=== PATIENT | female | born 1995 | race African-American/Black ===

== ENCOUNTER 2019-04-15 10:05 | Inpatient (IN) ==
[2019-04-15] MEDS ORDERED: CITRIC ACID/SODIUM CITRATE 30 ML UDCUP PO ONE (10:55)
[2019-04-15] MEDS ORDERED: FAMOTIDINE 20 MG/2 ML VIAL IV ONE (10:55)
[2019-04-15] MEDS ORDERED: ceFAZolin 2,000 MG in PREMIX 1 EACH IV ONE (10:55)
[2019-04-15] MEDS ORDERED: OXYTOCIN/LR 30 UNIT/1,000 ML BAG IV ONE (10:59)
[2019-04-15] MEDS ORDERED: OXYTOCIN 10 UNIT/ML VIAL IM ONE (10:59)
[2019-04-15] MEDS ORDERED: LACTATED RINGERS 1,000 ML IV SCH ×2 (11:00→15:30)
[2019-04-15 11:09] LABS: Basophils # 0.1 10*3/uL (0.0-0.2); Basophils % 0.5 % (0.0-0.8); Eosinophils # 0.1 10*3/uL (0.0-0.87); Hematocrit 35.5 VOL% (35.7-47.0); Hemoglobin 12.5 GM/DL (12.0-16.0); Immature Granulocytes % 1.3 %; Immature Granulocytes Absolute 0.12 #; Lymphocytes # 2.2 10*3/uL (1.4-4.0); Lymphocytes % 23.5 % (21.3-54.2); Mean Corpuscular HGB Conc 35.2 GM/DL (32-36); Mean Corpuscular Volume 75.1 FL (87-102); Monocytes % 7.4 % (1.7-12.7); Neutrophils % 66.3 % (38.7-73.9); Platelet Count 204 T/CUMM (130-400); Red Blood Count 4.73 MC/CUMM (3.8-5.5); Red Cell Distribution Width 14.3 % (9.3-17.3); White Blood Count 9.4 T/CUMM (4-12)
[2019-04-15 11:43] LABS: Albumin 2.9 G/DL (3.4-5.0); Bilirubin,Total 0.4 MG/DL (0.2-1.0); Calcium 8.7 MG/DL (8.5-10.1); Osmolality,Calculated 272.5 MOS/KG (273-304); Total Protein 6.8 G/DL (6.4-8.3)
[2019-04-15] MEDS ORDERED: MORPHINE 10 MG/10 ML VIAL ONE (12:36)
[2019-04-15] MEDS ORDERED: PHENYLEPHRINE 1 MG/10 ML SYRINGE IV ONE (12:36)
[2019-04-15] MEDS ORDERED: ONDANSETRON 4 MG/2 ML VIAL ONE ×2 (12:36→16:30)
[2019-04-15] MEDS ORDERED: BUPIVACAINE SPINAL 0.75% 2 ML AMP SPINAL ONE (12:36)
[2019-04-15] MEDS ORDERED: fentaNYL 100 MCG/2 ML VIAL ONE (12:36)
[2019-04-15] MEDS ORDERED: LACTATED RINGERS 1,000 ML IV ONE (14:00)
[2019-04-15] MEDS ORDERED: RHO(D) IMMUNE GLOBULIN 300 MCG SYRINGE IM ONE (15:17)
[2019-04-15] MEDS ORDERED: ONDANSETRON 4 MG/2 ML VIAL IV PRN (15:17)
[2019-04-15] MEDS ORDERED: OXYTOCIN/LR 20 UNIT/1,000 ML BAG IV ONE (15:17)
[2019-04-15] MEDS ORDERED: ACETAMINOPHEN 325 MG TABLET PO PRN (15:17)
[2019-04-15] MEDS ORDERED: MAGNESIUM HYDROXIDE SUSP 30 ML UDCUP PO PRN (15:17)
[2019-04-15 15:38] LABS: Apearance,Urine CLEAR (Clear); Bilirubin,Urine Negative (Negative); Blood, Urine Negative (Negative); Glucose,Urine (UA) Negative (Negative); Ketones,Urine 20 mg/dL (Negative); Nitrite,Urine Negative (Negative); Protein,Urine Negative; RBC,Urine 1 /HPF (0-4); Urine Color Straw (Yellow); Urine Specific Gravity 1.005 (1.001-1.035); Urine Urobilinogen < 2.0 EU/DL (0.2-1.0); WBC,Urine <1 /HPF (0-6)
[2019-04-15] MEDS ORDERED: EPINEPHrine 1 MG/ML VIAL ONE (15:43)
[2019-04-15] MEDS ORDERED: DEXAMETHASONE 4 MG/1 ML VIAL ONE (15:43)
[2019-04-15] MEDS ORDERED: BUPIVACAINE 0.5% 50 ML VIAL ONE (15:43)
[2019-04-15] MEDS ORDERED: PROMETHAZINE 25 MG/1 ML VIAL IM PRN (19:33)
[2019-04-15] MEDS: DOCUSATE SODIUM 100 MG CAPSULE PO SCH (20:28)
[2019-04-15] MEDS: ceFAZolin 1,000 MG in SYRINGE 1 EACH IV SCH (22:11)
[2019-04-15 23:28] LABS: Basophils % 0.2 % (0.0-0.8); Hematocrit 36.2 VOL% (35.7-47.0); Hemoglobin 12.5 GM/DL (12.0-16.0); Immature Granulocytes % 0.4 %; Immature Granulocytes Absolute 0.06 #; Lymphocytes # 1.4 10*3/uL (1.4-4.0); Lymphocytes % 9.7 % (21.3-54.2); Mean Corpuscular HGB Conc 34.5 GM/DL (32-36); Mean Corpuscular Volume 75.6 FL (87-102); Mean Platelet Volume 10.8 FL (9.6-12.0); Monocytes % 4.8 % (1.7-12.7); Neutrophils % 84.9 % (38.7-73.9); Platelet Count 195 T/CUMM (130-400); Red Blood Count 4.79 MC/CUMM (3.8-5.5); Red Cell Distribution Width 14.5 % (9.3-17.3); White Blood Count 14.5 T/CUMM (4-12)
[2019-04-16] MEDS: IBUPROFEN 800 MG TABLET PO PRN ×3 (03:55→21:38)
[2019-04-16 05:57] LABS: Basophils % 0.2 % (0.0-0.8); Eosinophils % 0.2 % (0.00-10.9); Hematocrit 33.7 VOL% (35.7-47.0); Hemoglobin 11.8 GM/DL (12.0-16.0); Immature Granulocytes Absolute 0.15 #; Lymphocytes # 1.9 10*3/uL (1.4-4.0); Lymphocytes % 12.6 % (21.3-54.2); Mean Corpuscular Volume 74.9 FL (87-102); Mean Platelet Volume 11.7 FL (9.6-12.0); Monocytes % 7.3 % (1.7-12.7); Neutrophils % 78.7 % (38.7-73.9); Platelet Count 199 T/CUMM (130-400); Red Cell Distribution Width 14.4 % (9.3-17.3); White Blood Count 15.2 T/CUMM (4-12)
[2019-04-16] MEDS: ceFAZolin 1,000 MG in SYRINGE 1 EACH IV SCH (06:12)
[2019-04-16] MEDS: MAGNESIUM HYDROXIDE SUSP 30 ML UDCUP PO SCH ×2 (09:51→21:32)
[2019-04-16] MEDS: METOCLOPRAMIDE 10 MG TABLET PO SCH ×3 (09:51→23:50)
[2019-04-16] MEDS: MULTIVITAMIN (PRENATAL) TABLET PO SCH (09:52)
[2019-04-16] MEDS: SIMETHICONE CHEW 80 MG TABLET PO PRN ×2 (09:52→21:32)
[2019-04-16] MEDS: DOCUSATE SODIUM 100 MG CAPSULE PO SCH ×2 (09:52→21:33)
[2019-04-16] MEDS: oxyCODONE/ACETAMINOPHEN 5-325 MG TABLET PO PRN (23:50)
[2019-04-17] MEDS: IBUPROFEN 800 MG TABLET PO PRN ×2 (04:22→11:30)
[2019-04-17] MEDS: oxyCODONE/ACETAMINOPHEN 5-325 MG TABLET PO PRN ×3 (05:23→11:34)
[2019-04-17] MEDS: MAGNESIUM HYDROXIDE SUSP 30 ML UDCUP PO SCH (09:04)
[2019-04-17] MEDS: MULTIVITAMIN (PRENATAL) TABLET PO SCH (09:05)
[2019-04-17] MEDS: DOCUSATE SODIUM 100 MG CAPSULE PO SCH (09:05)
[2019-04-17] MEDS: METOCLOPRAMIDE 10 MG TABLET PO SCH (09:05)
[2019-04-17] MEDS: SIMETHICONE CHEW 80 MG TABLET PO PRN (09:05)
[2019-04-17 12:53] VITALS: BP 106/66
== END 2019-04-17 15:35 | disposition home or self-care (01) | DRG 540 ==
LOC: N.LD 10:05 → N.OB 18:08
PROVIDERS: ADMIT Obstetrics & Gynecology; ATTEND Obstetrics & Gynecology
PROC: LDCSECT (ICD-10-PCS; 2019-04-15 14:45)

== ENCOUNTER 2020-11-23 08:11 | Inpatient (IN) ==
[2020-11-23] MEDS ORDERED: ceFAZolin 2,000 MG/50 ML DUPLEX IV ONE (08:54)
[2020-11-23] MEDS ORDERED: CITRIC ACID/SODIUM CITRATE 30 ML UDCUP PO ONE (08:54)
[2020-11-23] MEDS ORDERED: LACTATED RINGERS 1,000 ML IV SCH ×2 (09:00→11:30)
[2020-11-23] MEDS ORDERED: ONDANSETRON 4 MG/2 ML VIAL IV PRN ×2 (09:01→11:21)
[2020-11-23] MEDS ORDERED: BUPIVACAINE SPINAL 0.75% 2 ML AMP SPINAL ONE (09:11)
[2020-11-23] MEDS ORDERED: ONDANSETRON 4 MG/2 ML VIAL ONE (09:11)
[2020-11-23] MEDS ORDERED: PHENYLEPHRINE 1 MG/10 ML SYRINGE IV ONE (09:11)
[2020-11-23] MEDS ORDERED: TRANEXAMIC ACID 1,000 MG/10 ML VIAL ONE (09:21)
[2020-11-23] MEDS ORDERED: METHYLERGONOVINE 0.2 MG/1 ML AMP ONE (09:21)
[2020-11-23] MEDS ORDERED: CARBOPROST TROMETHAMINE 250 MCG/ML AMP IM ONE (09:21)
[2020-11-23] MEDS ORDERED: miSOPROStoL 200 MCG TABLET ONE (09:21)
[2020-11-23 09:25] LABS: Barbiturates Screen,Urine Negative (Negative); Benzodiazepines Screen,Urine Negative (Negative); Cannabinoid Screen,Urine Negative (Negative); Opiate Screen,Urine Negative (Negative); Phencyclidine Screen,Urine Negative (Negative)
[2020-11-23] MEDS ORDERED: FAMOTIDINE 20 MG/2 ML VIAL IV SCH (09:30)
[2020-11-23] MEDS ORDERED: OXYTOCIN/LR 30 UNIT/1,000 ML BAG IV ONE (09:30)
[2020-11-23] MEDS ORDERED: OXYTOCIN 10 UNIT/ML VIAL IM ONE (09:30)
[2020-11-23 09:35] LABS: Basophils % 0.6 % (0.0-0.8); Eosinophils # 0.1 10*3/uL (0.0-0.87); Eosinophils % 1.2 % (0.00-10.9); Hematocrit 35.8 VOL% (35.7-47.0); Hemoglobin 12.1 GM/DL (12.0-16.0); Immature Granulocytes % 0.9 %; Immature Granulocytes Absolute 0.06 #; Lymphocytes # 1.6 10*3/uL (1.4-4.0); Lymphocytes % 22.4 % (21.3-54.2); Mean Corpuscular HGB Conc 33.8 GM/DL (32-36); Mean Corpuscular Volume 77.8 FL (87-102); Mean Platelet Volume 10.5 FL (9.6-12.0); Monocytes % 10.7 % (1.7-12.7); Neutrophils % 64.2 % (38.7-73.9); Platelet Count 184 T/CUMM (130-400); Red Cell Distribution Width 14.7 % (9.3-17.3); White Blood Count 6.9 T/CUMM (4-12)
[2020-11-23 09:49] LABS: Bilirubin,Total 0.8 MG/DL (0.2-1.0); Calcium 8.8 MG/DL (8.5-10.1); Osmolality,Calculated 270.7 MOS/KG (273-304); Potassium 3.7 MMOL/L (3.5-5.1); Total Protein 6.9 G/DL (6.4-8.2)
[2020-11-23 11:03] LABS: Cord Arterial Blood HCO3 21.5 MMOL/L
[2020-11-23 11:05] LABS: Cord Venous Blood HCO3 22.5 MMOL/L; Cord Venous Blood PCO2 49.4 MMHG
[2020-11-23 11:14] LABS: Bilirubin,Urine Negative (Negative); Blood, Urine Negative (Negative); Glucose,Urine (UA) Negative (Negative); Ketones,Urine Negative (Negative); Mucus,Urine Occasional /LPF (Occasional); Nitrite,Urine Negative (Negative); Protein,Urine Negative; Squamous Epithelial Cell,Urine Occasional /HPF (0-10); Urine Appearance CLEAR (Clear); Urine Color Yellow (Yellow); Urine Urobilinogen < 2.0 EU/DL (0.2-1.0)
[2020-11-23] MEDS ORDERED: MAGNESIUM HYDROXIDE SUSP 30 ML UDCUP PO PRN (11:21)
[2020-11-23] MEDS ORDERED: OXYTOCIN/LR 20 UNIT/1,000 ML BAG IV ONE ×2 (11:21→12:04)
[2020-11-23] MEDS ORDERED: ACETAMINOPHEN 325 MG TABLET PO PRN (11:21)
[2020-11-23] MEDS ORDERED: RHO(D) IMMUNE GLOBULIN 300 MCG SYRINGE IM ONE (11:21)
[2020-11-23] MEDS: ACETAMINOPHEN 500 MG TABLET PO SCH ×2 (15:00→20:58)
[2020-11-23] MEDS: KETOROLAC 30 MG/1 ML VIAL IV SCH ×2 (15:00→20:54)
[2020-11-23 18:23] LABS: Basophils % 0.4 % (0.0-0.8); Eosinophils # 0.1 10*3/uL (0.0-0.87); Eosinophils % 0.6 % (0.00-10.9); Hematocrit 35.7 VOL% (35.7-47.0); Hemoglobin 12.6 GM/DL (12.0-16.0); Immature Granulocytes % 0.7 %; Immature Granulocytes Absolute 0.07 #; Lymphocytes # 1.7 10*3/uL (1.4-4.0); Lymphocytes % 17.7 % (21.3-54.2); Mean Corpuscular HGB Conc 35.3 GM/DL (32-36); Mean Corpuscular Volume 75.5 FL (87-102); Mean Platelet Volume 10.6 FL (9.6-12.0); Monocytes % 6.6 % (1.7-12.7); Platelet Count 187 T/CUMM (130-400); Red Blood Count 4.73 MC/CUMM (3.8-5.5); Red Cell Distribution Width 14.5 % (9.3-17.3); White Blood Count 9.8 T/CUMM (4-12)
[2020-11-23] MEDS: DOCUSATE SODIUM 100 MG CAPSULE PO SCH (20:54)
[2020-11-24] MEDS: ACETAMINOPHEN 500 MG TABLET PO SCH ×2 (04:33→11:12)
[2020-11-24 04:34] LABS: Basophils # 0.1 10*3/uL (0.0-0.2); Basophils % 0.5 % (0.0-0.8); Eosinophils # 0.2 10*3/uL (0.0-0.87); Eosinophils % 1.6 % (0.00-10.9); Hematocrit 32.9 VOL% (35.7-47.0); Hemoglobin 11.7 GM/DL (12.0-16.0); Immature Granulocytes % 0.6 %; Immature Granulocytes Absolute 0.06 #; Lymphocytes # 1.5 10*3/uL (1.4-4.0); Lymphocytes % 14.7 % (21.3-54.2); Mean Corpuscular HGB Conc 35.6 GM/DL (32-36); Mean Corpuscular Volume 74.4 FL (87-102); Mean Platelet Volume 10.9 FL (9.6-12.0); Monocytes % 10.3 % (1.7-12.7); Neutrophils % 72.3 % (38.7-73.9); Platelet Count 189 T/CUMM (130-400); Red Blood Count 4.42 MC/CUMM (3.8-5.5); Red Cell Distribution Width 14.6 % (9.3-17.3); White Blood Count 9.9 T/CUMM (4-12)
[2020-11-24] MEDS: KETOROLAC 30 MG/1 ML VIAL IV SCH ×2 (05:12→11:13)
[2020-11-24] MEDS: DOCUSATE SODIUM 100 MG CAPSULE PO SCH ×2 (09:15→20:15)
[2020-11-24] MEDS: METOCLOPRAMIDE 10 MG TABLET PO SCH ×3 (09:16→23:22)
[2020-11-24] MEDS: MULTIVITAMIN (PRENATAL) TABLET PO SCH (09:16)
[2020-11-24] MEDS: oxyCODONE/ACETAMINOPHEN 5-325 MG TABLET PO PRN ×4 (09:20→23:42)
[2020-11-24] MEDS: IBUPROFEN 800 MG TABLET PO PRN ×2 (11:12→18:45)
[2020-11-24] MEDS: SIMETHICONE CHEW 80 MG TABLET PO PRN (20:15)
[2020-11-24] MEDS ORDERED: MAGNESIUM CITRATE 300 ML BOTTLE PO ONE (23:09)
[2020-11-25] MEDS: IBUPROFEN 800 MG TABLET PO PRN ×2 (04:07→11:54)
[2020-11-25] MEDS: oxyCODONE/ACETAMINOPHEN 5-325 MG TABLET PO PRN ×2 (04:07→11:26)
[2020-11-25] MEDS: SIMETHICONE CHEW 80 MG TABLET PO PRN (04:07)
[2020-11-25] MEDS: METOCLOPRAMIDE 10 MG TABLET PO SCH (08:10)
[2020-11-25] MEDS: DOCUSATE SODIUM 100 MG CAPSULE PO SCH (08:21)
[2020-11-25] MEDS: MULTIVITAMIN (PRENATAL) TABLET PO SCH (08:21)
[2020-11-25 08:35] VITALS: BP 129/77
== END 2020-11-25 12:15 | disposition home or self-care (01) | DRG 540 ==
LOC: N.LD 08:11 → N.OB 15:16
PROVIDERS: ADMIT Obstetrics & Gynecology; ATTEND Obstetrics & Gynecology
PROC: LDCSECT (ICD-10-PCS; 2020-11-23 10:05)